=== PATIENT | male | born 1970 | race Caucasian/White ===

== ENCOUNTER 2017-02-25 10:35 | Inpatient (IN) | payer OTHER ==
[2017-02-25 10:42] VITALS: BMI 37.0
[2017-02-25] MEDS ORDERED: LIDOCAINE VISCOUS 2% ORAL/TOP 20 ML UNIT-DOSE CUP MM ONE (10:44)
[2017-02-25] MEDS ORDERED: morphine CARPU-JECT 2 MG/1 ML DISP.SYRIN IVPUSH ONE (10:45)
[2017-02-25] MEDS ORDERED: SODIUM CHLORIDE 1,000 ML IV STA ×2 (10:45→11:35)
[2017-02-25] MEDS ORDERED: DEXAMETHASONE SOD PHOSPHATE 10 MG/1 ML VIAL IVPUSH ONE (10:45)
[2017-02-25] MEDS ORDERED: morphine CARPU-JECT 4 MG/1 ML DISP.SYRIN ONE (10:51)
[2017-02-25] MEDS ORDERED: DEXAMETHASONE SOD PHOSPHATE 10 MG/1 ML VIAL ONE (10:51)
[2017-02-25 11:12] LABS: BASOPHIL 0.3 % (0-2.0); EOSINOPHIL 0.2 % (0-4.5); MCH 25.8 pg (25.7-33.7); MCHC 32.5 g/dl (32.0-35.9); MEAN CELL VOLUME 79.3 fl (80-96); MEAN PLT VOLUME 7.4 fl (7.5-11.1); NEUTROPHILS 78.5 % (42.8-82.8); PLATELET COUNT 239 K/MM3 (134-434); RDW 13.1 % (11.9-15.9); WHITE BLOOD COUNT 12.8 K/mm3 (4.0-10.0)
[2017-02-25 11:31] LABS: ALBUMIN 3.3 g/dl (3.4-5.0); ANION GAP 11 (8-16); CALCIUM 8.6 mg/dL (8.5-10.1); CO2 27 mmol/L (21-32); GLUCOSE,RANDOM 96 mg/dL (74-106)
[2017-02-25 11:35] LABS: BILIRUBIN,TOTAL 0.4 mg/dL (0.2-1.0); COCKROFT - GAULT 183.45; CREATININE 0.9 mg/dL (0.7-1.3); SGOT/AST 21 U/L (15-37); SGPT/ALT 26 U/L (12-78); TOT PROT 6.9 g/dl (6.4-8.2)
--- NOTE | 2017-02-25 11:35 | PDOC ---
History of Present Illness - General Chief Complaint: Sore Throat Stated Complaint: ABCESS Time Seen by Provider: 02/25/17 10:42 History Source: Patient Exam Limitations: No Limitations - History of Present Illness Initial Comments: 02/25/17 11:00 46-year-old male presents to the ED with complaints of sore throat, fever, difficulty swallowing, and generalized fatigue secondary to strep throat. Patient states on Friday started with mild complaints and by Friday he had a fever and went to an urgent care clinic where he was placed on amoxicillin and given a dose of Decadron. Patient states has been taking the medication as prescribed along with Motrin but states still has a fever and symptoms continue. Patient states history of hypothyroidism and dyslipidemia along with sleep apnea. Patient also states that as a child had recurrent strep throat and enlarged tonsils. Patient has no other complaints at this time. Timing/Duration: reports: other Severity: reports: moderate Possible Cause: Yes: occasional episodes Associated Symptoms: reports: fever/chills, sore throat Past History - Past Medical History Allergies/Adverse Reactions: Allergies Allergy/AdvReac Type Severity Reaction Status Date / Time No Known Drug Allergies Allergy Verified 02/25/17 10:46 Home Medications: Ambulatory Orders Atorvastatin Ca [Lipitor] 10 mg PO HS 09/22/15 Levothyroxine [Synthroid -] 75 mcg PO HS 09/22/15 Acetaminophen [Tylenol .Regular Strength -] 650 mg PO Q4H PRN #0 tablet Amoxicillin/Potassium Clav [Augmentin 875-125 Tablet] 1 each PO BID #14 tablet 02/27/17 Dexamethasone [Decadron -] 4 mg PO BID #6 tablet 02/27/17 Anemia: No Asthma: No Cancer: No Cardiac Disorders: No CVA: No COPD: No CHF: No Dementia: No Diabetes: No GI Disorders: No Disorders: No HTN: No Hypercholesterolemia: Yes Liver Disease: No Seizures: No Thyroid Disease: Yes (HYPO) - Surgical History Neurologic Surgery: No (Spinal epidural X 4) - Immunization History Immunization Up to Date: Yes - Psycho/Social/Smoking Cessation Hx Anxiety: No Suicidal Ideation: No Smoking Status: Yes Smoking History: Current some day smoker Have you smoked in the past 12 months: Yes Number of Cigarettes Smoked Daily: 2 Information on smoking cessation initiated: No 'Breaking Loose' booklet given: 11/29/14 Hx Alcohol Use: Yes (social) Drug/Substance Use Hx: No Substance Use Type: Alcohol Hx Substance Use Treatment: No Patient Lives Alone: No Lives with/in: spouse/SO Review of Systems - Review of Systems Able to Perform ROS?: Yes Constitutional: Yes: Fever, Loss of Appetite HEENTM: Yes: Throat Pain, Throat Swelling, Difficulty Swallowing Respiratory: No: Symptoms reported Cardiac (ROS): No: Symptoms Reported ABD/GI: No: Symptoms Reported : No: Symptoms Reported Musculoskeletal: No: Symptoms Reported Integumentary: No: Symptoms Reported Neurological: No: Headache, Dizziness *Physical Exam - Vital Signs Last Vital Signs Temp Pulse Resp BP Pulse Ox 98.6 F 84 18 123/80 100 02/25/17 10:37 02/25/17 10:37 02/25/17 10:37 02/25/17 10:37 02/25/17 10:37 - Physical Exam General Appearance: Yes: Nourished, Appropriately Dressed. No: Apparent Distress HEENT: positive: EOMI, IVIS, TMs Normal, Tonsillar Erythema (4+ kissing tonsils without uvular deviation. No exudate), Other (mild trismus). negative: Normal Voice (garbled), Pale Conjunctivae, Excessive drooling Neck: positive: Normal Thyroid, Supple, Lymphadenopathy (R) (upper cervical), Lymphadenopathy (L) (upper cervical) Respiratory/Chest: positive: Lungs Clear, Normal Breath Sounds. negative: Respiratory Distress, Accessory Muscle Use, Stridor Cardiovascular: positive: Regular Rhythm, Regular Rate. negative: Murmur Integumentary: positive: Normal Color, Warm, Moist Neurologic: positive: Motor Strength 5/5 (ambulatory) ED Treatment Course - LABORATORY CBC & Chemistry Diagram: 02/26/17 06:30 02/26/17 06:30 - ADDITIONAL ORDERS Additional order review: 02/25/17 10:59 RBC 5.30 MCV 79.3 L MCHC 32.5 RDW 13.1 MPV 7.4 L Neutrophils % 78.5 D Lymphocytes % 11.8 D Monocytes % 9.2 Eosinophils % 0.2 D Basophils % 0.3 - RADIOLOGY Radiology Studies Ordered: Category Date Time Status SOFT TISSUE NECK CT WITH CONTR [CT] Stat CT Scan 02/25/17 10:45 Ordered - Medications Given in the ED: ED Medications Discontinued Medications Generic Name Dose Route Start Last Admin Trade Name Lucía PRN Reason Stop Dose Admin Dexamethasone Sodium Phosphate 10 mg 02/25/17 10:45 02/25/17 10:57 Decadron Injection - IVPUSH 02/25/17 10:46 10 mg ONCE ONE Administration Morphine Sulfate 4 mg 02/25/17 10:45 02/25/17 10:57 Morphine Injection - IVPUSH 02/25/17 10:46 4 mg ONCE ONE Administration Medical Decision Making - Medical Decision Making 02/25/17 11:04 Fever and difficulty swallowing along with difficulty tolerating solids secondary to symptoms. Patient on day 2/3 of 7 of amoxicillin 875 twice a day for treatment of strep throat. 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 Patient ordered for steroids, fluids, labs, and CT. 02/25/17 12:03 Laboratory Tests 02/25/17 02/25/17 02/25/17 10:59 10:59 10:59 WBC 12.8 H D Hgb 13.7 Hct 42.1 Plt Count 239 Neutrophils % 78.5 D Sodium 139 Potassium 3.6 Chloride 101 Carbon Dioxide 27 Anion Gap 11 BUN 21 H D Creatinine 0.9 Random Glucose 96 Lactic Acid 0.995 AST 21 ALT 26 D Patient ordered for second liter of normal saline. CT results pending. 02/25/17 13:45 Soft tissue of the neck shows markedly enlarged tonsils kissing in the midline obstructing the area with a questionable small left peritonsillar abscess measuring 9 mm. Enlarged bilateral upper and mid neck jugular chain lymph nodes noted. Patient currently receiving Unasyn and will contact ENT and patient's PCP for admission. Patient states feeling slightly better and tolerated small amount of ice chips. We'll repeat vitals. 02/25/17 14:[address] Sheehan and agrees patient would benefit from admission along with IV antibiotics, steroids, and IV fluids. He believes at this time patient will not need drainage of the abscess . I've also spoken to Dr. Russ who states to admit to him and consult Dr. Jackson from infectious disease. *DC/Admit/Observation/Transfer Diagnosis at time of Disposition: Compromised airway, Tonsillar enlargement, Peritonsillar abscess - Discharge Dispostion Condition at time of disposition: Improved Admit: Yes - Prescriptions
[2017-02-25 11:36] LABS: ALK PHOS 63 U/L (45-117)
[2017-02-25] MEDS ORDERED: AMPICILLIN NA/SULBACTAM NA 3 GM in SODIUM CHLORIDE 100 ML IVPB ONE (12:31)
--- NOTE | 2017-02-25 14:01 | PDOC ---
*Physical Exam - Vital Signs Last Vital Signs Temp Pulse Resp BP Pulse Ox 98.6 F 84 18 123/80 100 02/25/17 10:37 02/25/17 10:37 02/25/17 10:37 02/25/17 10:37 02/25/17 10:37 ED Treatment Course - LABORATORY CBC & Chemistry Diagram: 02/26/17 06:30 02/26/17 06:30 - ADDITIONAL ORDERS Additional order review: Laboratory Results 02/25/17 02/25/17 10:59 10:59 Sodium 139 Potassium 3.6 Chloride 101 Carbon Dioxide 27 Anion Gap 11 BUN 21 H D Creatinine 0.9 Creat Clearance w eGFR > 60 Random Glucose 96 Lactic Acid 0.995 Calcium 8.6 Total Bilirubin 0.4 D AST 21 ALT 26 D Alkaline Phosphatase 63 Total Protein 6.9 Albumin 3.3 L 02/25/17 10:59 RBC 5.30 MCV 79.3 L MCHC 32.5 RDW 13.1 MPV 7.4 L Neutrophils % 78.5 D Lymphocytes % 11.8 D Monocytes % 9.2 Eosinophils % 0.2 D Basophils % 0.3 - Medications Given in the ED: ED Medications Discontinued Medications Generic Name Dose Route Start Last Admin Trade Name Freq PRN Reason Stop Dose Admin Dexamethasone Sodium Phosphate 10 mg 02/25/17 10:45 02/25/17 10:57 Decadron Injection - IVPUSH 02/25/17 10:46 10 mg ONCE ONE Administration Sodium Chloride 1,000 mls @ 1,000 mls/hr 02/25/17 10:45 02/25/17 10:57 Normal Saline - IV 02/25/17 11:44 1,000 mls/hr ASDIR STA Administration Sodium Chloride 1,000 mls @ 1,000 mls/hr 02/25/17 11:35 02/25/17 11:51 Normal Saline - IV 02/25/17 12:34 1,000 mls/hr ASDIR STA Administration Ampicillin Sodium/Sulbactam 100 mls @ 200 mls/hr 02/25/17 12:31 02/25/17 13:32 Sodium 3 gm/ Sodium Chloride IVPB 02/25/17 13:00 200 mls/hr ONCE ONE Administration Lidocaine HCl 10 ml 02/25/17 10:44 02/25/17 11:49 Xylocaine 2% Viscous Oral - MM 02/25/17 10:45 10 ml ONCE ONE Administration Morphine Sulfate 4 mg 02/25/17 10:45 02/25/17 10:57 Morphine Injection - IVPUSH 02/25/17 10:46 4 mg ONCE ONE Administration Medical Decision Making - Medical Decision Making 02/25/17 14:01 Pt seen by Midlevel Provider under my direct supervision Ancillary studies reviewed I agree with plan as outlined by Midlevel Provider *DC/Admit/Observation/Transfer Diagnosis at time of Disposition: Compromised airway, Tonsillar enlargement, Peritonsillar abscess
[2017-02-25] MEDS ORDERED: HYDROmorphone HCL CARPU-JECT 2 MG/1 ML DISP.SYRIN IVPUSH ONE (14:14)
[2017-02-25] MEDS ORDERED: HYDROmorphone HCL CARPU-JECT 1 MG/1 ML DISP.SYRIN ONE (14:15)
[2017-02-25] MEDS ORDERED: ACETAMINOPHEN 325 MG TABLET (FP) PO PRN (15:37)
--- NOTE | 2017-02-25 16:09 | PN ---
Progress Note (short form) - Note Progress Note: ID Consult dictated Severe pharyngitis with "kissing" tonsils Possible peritonsillar abscess Obtain BC, ASO, Monospot, throat c/s Unasyn 3gm q6h Decadron ENT evaluation
[2017-02-25] MEDS: D5-1/2NS+20 MEQ KCL - 1,000 ML IV SCH (16:10)
[2017-02-25] MEDS ORDERED: AMPICILLIN NA/SULBACTAM NA 3 GM in SODIUM CHLORIDE 100 ML IVPB SCH (18:00)
--- NOTE | 2017-02-25 18:13 | CON.ENT ---
Consult Consult Specialty:: ENT Referred by:: Dr. Russ Reason for Consultation:: peritonsillar abscess - History of Present Illness Chief Complaint: throat pain History of Present Illness: 46 yo M, hx childhood tonsil infections, no tonsillectomy 3 day hx worsening sore throat, high fever 104, to urgent care, rx steroids, antibiotics no better, worsening pain, continued fever, could nto handle secretions, to ER dx tonsillitis ?peritonsillar abscess, CT scan shows small 9mm lucency on IV antibiotics, Unasyn, decadron, notes improvement, able to eat/swallow soup also notes obstructive sleep apnea syndrome with witnessed apneas and SaO2 into 60's - History Source History Provided By: Patient, Family Member, Medical Record - Alcohol/Substance Use Hx Alcohol Use: Yes (social) - Smoking History Smoking history: Current some day smoker Have you smoked in the past 12 months: Yes Aproximately how many cigarettes per day: 2 Home Medications - Allergies Allergies/Adverse Reactions: Allergies Allergy/AdvReac Type Severity Reaction Status Date / Time No Known Drug Allergies Allergy Verified 02/25/17 10:46 - Home Medications Home Medications: Ambulatory Orders Atorvastatin Ca [Lipitor -] 10 mg PO HS 09/22/15 Levothyroxine [Synthroid -] 75 mcg PO HS 09/22/15 Physical Exam-ENT Vital Signs: Vital Signs Temperature 98.2 F 02/25/17 16:15 Pulse Rate 93 H 02/25/17 16:15 Respiratory Rate 20 02/25/17 16:15 Blood Pressure 107/59 02/25/17 16:15 O2 Sat by Pulse Oximetry (%) 100 02/25/17 14:37 Constitutional: Yes: Well Nourished, Calm, Obese Head: Yes: WNL Face: Yes: WNL Eyes: Yes: WNL Nose: Yes: WNL Nasal Passage: Yes: WNL Oral/Pharynx: Yes: Enlarged Tonsils, Other (no trismus, tonsils 4+ kissing, some exudate,k uvula is midline, NO palatal swelling, NO peritonsillar abscess) Outer Ear: Yes: WNL Ear Canal: Yes: WNL Tympanic Membrane: Yes: WNL Neck: Yes: Other (tender nodes) Respiratory: Yes: WNL Neurological: Yes: WNL Imaging - Results Cat Scan: Report Reviewed (9 mm lucency ?early abscess) Problem List - Problems (1) Peritonsillar abscess Assessment/Plan: severe pain with fever and tonsillar hypertrophy early abscess on CT scan, but no clinical manifestations improving on IV meds rec continue meds NO indication for any drainage procedure if improved, ok to discharge when meets discharge criteria separately pt has suspected SUMAN needs outpatient evaluation including sleep test further treatment depends on results, but would likely start with CPAP may be candidate for surgery (tonsillectomy ?UPPP) depending on exam and course after acute infection resolved. Thank you for consultation, William Sheehan MD FACS Code(s): J36 - PERITONSILLAR ABSCESS
--- NOTE | 2017-02-25 19:13 | CONS ---
DATE OF CONSULTATION: DATE OF DICTATION: 02/25/2017 INFECTIOUS DISEASE CONSULTATION HISTORY OF PRESENT ILLNESS: The patient is a 46-year-old male being evaluated for severe pharyngitis and tonsillar hypertrophy. The patient reports feeling well until Wednesday February 22, 2017. He developed profound fatigue. He subsequently developed sore throat with difficulty swallowing. He had presented to an urgent care center where he was diagnosed with Streptococcus throat. A rapid Streptococcus test was reportedly positive. He was treated with Augmentin 875 mg p.o. b.i.d. Patient states that he took 2 days' worth of the medication; however, it did not improve. He developed worsening difficulty swallowing. He presented to the emergency room at [facility] where he was found to have severe pharyngitis with kissing tonsils. A CAT scan confirmed the presence of large tonsils with partially occluded airway and possible early peritonsillar abscess. He was empirically treated with Unasyn and Decadron. PAST MEDICAL HISTORY: Positive for obesity, obstructive sleep apnea, hypothyroidism, hyperlipidemia. ALLERGIES: No known allergies. MEDICATION: Include Lipitor, Synthroid. SOCIAL HISTORY: Lives at home with his and children. He states that none of his children have been ill with respiratory tract conditions. He has had no ill contacts at work. He is a smoker, occasional ETOH. SYSTEMS REVIEW: Neurologic: No loss of consciousness, seizure activity, or focal weakness. Cardiac: Negative chest pain or palpitations. Respiratory: Negative cough or sputum production. Gastrointestinal: Negative vomiting or diarrhea. Genitourinary: Negative for urinary tract infection. LABORATORY DATA: White count 12.8, with 78 neutrophils, 11 lymphocytes, 9 monocytes, hematocrit 42.1, platelet count 235, BUN 21, creatinine 0.9. PHYSICAL EXAMINATION: General: He is awake and alert. He is not acutely toxic appearing. He has a "hot potato voice". Vital signs: Temperature 98.0, blood pressure 128/60, pulse 85 regular, respirations 18 per minute . There is no respiratory distress, stridor, or wheeze. HEENT: Sclerae anicteric. Oropharynx, there is injected pharynx with large tonsils with near occlusion of the airway. No exudates noted. Neck: Supple. Positive submandibular retinopathy. No other tender adenopathy appreciated. Cardiovascular: Heart sounds S1, S2. Respiratory: Lungs clear. No stridor or wheezing. Abdomen: Obese, soft, nontender. No palpable liver or spleen. Extremities: Negative for edema. IMPRESSION: 1. Severe pharyngitis with "kissing" tonsils. 2. Possible impending airway obstruction. 3. Possible peritonsillar abscess. Obtain blood cultures, ASO titer, monospot, throat culture, empiric antibiotic coverage with Unasyn 3 g IV piggyback every 6 hours, Decadron, ENT evaluation. Thank you for the kind referral. AUGUSTINA HAUSER M.D. [id number]
[2017-02-25] MEDS ORDERED: PT OWN MED DRAWER 7, Y5N ONE (21:13)
[2017-02-25] MEDS: AMPICILLIN NA/SULBACTAM NA 3 GM in SODIUM CHLORIDE 100 ML IVPB SCH (21:58)
[2017-02-25] MEDS: HEPARIN NA (PORCINE) 5,000 UNITS/ML 1ML VIAL SQ SCH (21:59)
[2017-02-25] MEDS: ATORVASTATIN CA 10 MG TABLET (FP) PO SCH (21:59)
[2017-02-25] MEDS: DEXAMETHASONE SOD PHOSPHATE 10 MG/1 ML VIAL IVPB SCH (21:59)
[2017-02-26] MEDS: DEXAMETHASONE SOD PHOSPHATE 10 MG/1 ML VIAL IVPB SCH ×4 (02:52→21:37)
[2017-02-26] MEDS: AMPICILLIN NA/SULBACTAM NA 3 GM in SODIUM CHLORIDE 100 ML IVPB SCH ×4 (02:52→21:37)
[2017-02-26] MEDS: LEVOTHYROXINE NA 75 MCG TABLET (FP) PO SCH (06:27)
--- NOTE | 2017-02-26 07:46 | HP ---
Admitting History and Physical - Admission History of Present Illness: 46-year-old male presents to the ED with complaints of sore throat, fever, difficulty swallowing, and generalized fatigue secondary to strep throat. Patient states on Friday started with mild complaints and by Friday he had a fever and went to an urgent care clinic where he was placed on amoxicillin and given a dose of Decadron. Patient states has been taking the medication as prescribed along with Motrin but states still has a fever and symptoms continue. Patient states history of hypothyroidism and dyslipidemia along with sleep apnea. Patient also states that as a child had recurrent strep throat and enlarged tonsils. Patient c/o difficulty swallowing but improved continues with hoarseness - Past Medical History Cardiovascular: Yes: Hyperlipdemia Pulmonary: Yes: Sleep Apnea Endocrine: Yes: Hypothyroidism - Smoking History Smoking history: Current some day smoker Have you smoked in the past 12 months: Yes Aproximately how many cigarettes per day: 2 - Alcohol/Substance Use Hx Alcohol Use: Yes (social) Home Medications - Allergies Allergies/Adverse Reactions: Allergies Allergy/AdvReac Type Severity Reaction Status Date / Time No Known Drug Allergies Allergy Verified 02/25/17 10:46 - Home Medications Home Medications: Ambulatory Orders Atorvastatin Ca [Lipitor -] 10 mg PO HS 09/22/15 Levothyroxine [Synthroid -] 75 mcg PO HS 09/22/15 Review of Systems - Review of Systems Constitutional: reports: Fever Eyes: reports: Other (sore throat) Neck: reports: No Symptoms Cardiovascular: denies: Chest Pain Respiratory: reports: SOB on Exertion. denies: SOB Gastrointestinal: denies: Abdominal Pain Musculoskeletal: reports: Back Pain Physical Examination Vital Signs: Vital Signs Temperature 98.9 F 02/26/17 06:47 Pulse Rate 82 02/26/17 06:47 Respiratory Rate 20 02/26/17 06:47 Blood Pressure 110/57 02/26/17 06:47 O2 Sat by Pulse Oximetry (%) 100 02/25/17 21:00 HENT: Yes: Hoarseness, Pharyngeal Erythema, Other (tonsilar swelling) Cardiovascular: Yes: Regular Rate and Rhythm Respiratory: Yes: Regular, CTA Bilaterally Gastrointestinal: Yes: Normal Bowel Sounds, Soft, Tenderness Edema: No Imaging - Results Cat Scan: Report Reviewed Problem List - Problems (1) Peritonsillar abscess Assessment/Plan: IV ABX ID AND ENT CONSULTS NOTED AND APPRECIATED Code(s): J36 - PERITONSILLAR ABSCESS (2) Tonsillar enlargement Assessment/Plan: IV ABX IV DECADRON Code(s): J35.1 - HYPERTROPHY OF TONSILS (3) Hypothyroid Assessment/Plan: SYNTHROID TSH Code(s): E03.9 - HYPOTHYROIDISM, UNSPECIFIED (4) SUMAN (obstructive sleep apnea) Assessment/Plan: W/U OUTPATIENT Code(s): G47.33 - OBSTRUCTIVE SLEEP APNEA (ADULT) (PEDIATRIC)
[2017-02-26 07:49] LABS: BASOPHIL 0.2 % (0-2.0); MCH 26.8 pg (25.7-33.7); MCHC 33.7 g/dl (32.0-35.9); MEAN CELL VOLUME 79.4 fl (80-96); MEAN PLT VOLUME 7.4 fl (7.5-11.1); NEUTROPHILS 88.6 % (42.8-82.8); PLATELET COUNT 240 K/MM3 (134-434); WHITE BLOOD COUNT 10.7 K/mm3 (4.0-10.0)
[2017-02-26 08:24] LABS: ALBUMIN 2.9 g/dl (3.4-5.0); ANION GAP 9 (8-16); BILIRUBIN,TOTAL 0.4 mg/dL (0.2-1.0); CHOLESTEROL 197 mg/dL (50-200); CO2 26 mmol/L (21-32); COCKROFT - GAULT 206.38; CREATININE 0.8 mg/dL (0.7-1.3); GLUCOSE,RANDOM 150 mg/dL (74-106); LDL CHOLESTEROL (ONLY SJRH) 134 mg/dL (5-100); SGOT/AST 21 U/L (15-37); SGPT/ALT 31 U/L (12-78); TOT PROT 6.5 g/dl (6.4-8.2)
[2017-02-26 08:32] LABS: ALK PHOS 60 U/L (45-117); THYROID STIMULATING HORMONE 1.02 uIU/ml (0.358-3.74)
[2017-02-26] MEDS ORDERED: PT OWN MED DRAWER 7, Y5N ONE ×3 (08:58→21:22)
[2017-02-26] MEDS: HEPARIN NA (PORCINE) 5,000 UNITS/ML 1ML VIAL SQ SCH ×2 (10:29→21:37)
--- NOTE | 2017-02-26 12:11 | PN ---
Progress Note, Physician History of Present Illness: Improved Less dysphagia/ odynophagia No respiratory compromise No fever/ chills - Current Medication List Current Medications: Active Medications Acetaminophen (Tylenol -) 650 mg PO Q4H PRN PRN Reason: FEVER OR PAIN Atorvastatin Calcium (Lipitor -) 10 mg PO HS [facility] Last Admin: 02/25/17 21:59 Dose: 10 mg Dexamethasone Sodium Phosphate (Decadron Injection -) 10 mg IVPB Q6H-IV [facility] Last Admin: 02/26/17 10:29 Dose: 10 mg Heparin Sodium (Porcine) (Heparin -) 5,000 unit SQ BID [facility] Last Admin: 02/26/17 10:29 Dose: 5,000 unit Potassium Chloride/Dextrose/Sod Cl (D5-1/2ns+20 Meq Kcl -) 1,000 mls @ 125 mls/ hr IV ASDIR [facility] Last Admin: 02/25/17 16:10 Dose: 125 mls/hr Ampicillin Sodium/Sulbactam (Sodium 3 gm/ Sodium Chloride) 100 mls @ 200 mls/ hr IVPB Q6H-IV [facility] Last Admin: 02/26/17 09:24 Dose: 200 mls/hr Levothyroxine Sodium (Synthroid -) 75 mcg PO ACBK [facility] Last Admin: 02/26/17 06:27 Dose: 75 mcg - Objective Vital Signs: Vital Signs Temperature 98.9 F 02/26/17 06:47 Pulse Rate 82 02/26/17 06:47 Respiratory Rate 20 02/26/17 06:47 Blood Pressure 110/57 02/26/17 06:47 O2 Sat by Pulse Oximetry (%) 100 02/25/17 21:00 Constitutional: Yes: No Distress Eyes: Yes: Conjunctiva Clear HENT: Yes: Other (decreased tonsillar hypertrophy) Neck: Yes: Supple Cardiovascular: Yes: Regular Rate and Rhythm, S1, S2 Respiratory: Yes: CTA Bilaterally. No: Stridor, Wheezes Gastrointestinal: Yes: Normal Bowel Sounds, Soft, Abdomen, Obese. No: Tenderness Labs: CBC, BMP 02/26/17 06:30 02/26/17 06:30 Assessment/Plan Severe tonsillitis/ peritonsillar abscess ENT evaluation noted Continue unasyn/ decadron
--- NOTE | 2017-02-26 20:58 | PN ---
Progress Note (short form) - Note Progress Note: ENT feeling much better, less pain able to eat/drink, had turkey soup with crackers breathing comfortably afebrile Exam: NAD comfortable no trismus oropharynx: tonsils enlarged, but now ~1 cm space between slight erythema, no exudate NO bulging of soft palate, no clinical signs of peritonsillar abscess Data: WBC 10.7 Impression: acute tonsillopharyngitis with possible early peritonsillar abscess markedly improved with IV antibiotics, steroids and fluids po intake satisfactory also clinical suspicion for obstructive sleep apnea syndrome Recommend: continue diet as tolerated consider change to po antibiotics in AM if meets discharge criteria then OK for discharge 02-27-17 from ENT perspective oral antibiotics as outpatient as per Infectious Disease to office after discharge for follow-up should have outpatient evaluation for obstructive sleep apnea syndrome may be candidate for tonsillectomy William Sheehan MD FACS Problem List - Problems (1) Peritonsillar abscess Code(s): J36 - PERITONSILLAR ABSCESS
[2017-02-26] MEDS: D5-1/2NS+20 MEQ KCL - 1,000 ML IV SCH (21:37)
[2017-02-26] MEDS: ATORVASTATIN CA 10 MG TABLET (FP) PO SCH (21:38)
[2017-02-27] MEDS: AMPICILLIN NA/SULBACTAM NA 3 GM in SODIUM CHLORIDE 100 ML IVPB SCH ×2 (02:36→10:07)
[2017-02-27] MEDS: DEXAMETHASONE SOD PHOSPHATE 10 MG/1 ML VIAL IVPB SCH (02:37)
[2017-02-27] MEDS: D5-1/2NS+20 MEQ KCL - 1,000 ML IV SCH (02:41)
[2017-02-27] MEDS: LEVOTHYROXINE NA 75 MCG TABLET (FP) PO SCH (06:26)
--- NOTE | 2017-02-27 07:10 | DS ---
Physical Examination Vital Signs: Vital Signs Temperature 97.7 F 02/27/17 06:22 Pulse Rate 68 02/27/17 06:22 Respiratory Rate 20 02/27/17 06:22 Blood Pressure 130/79 02/27/17 06:22 O2 Sat by Pulse Oximetry (%) 100 02/26/17 21:00 Findings/Remarks: FEELS BETTER TOLERATING DIET HENT: Yes: Pharyngeal Erythema, Other (LESS SWELLING) Neck: No: Tenderness Cardiovascular: Yes: Regular Rate and Rhythm Respiratory: Yes: Regular, CTA Bilaterally Gastrointestinal: Yes: Normal Bowel Sounds, Soft Labs: CBC, BMP 02/26/17 06:30 02/26/17 06:30 Discharge Summary Reason For Visit: PERITONSILLAR ABSCESS Current Active Problems Compromised airway (Acute) Hypothyroid (Acute) SUMAN (obstructive sleep apnea) (Acute) Peritonsillar abscess (Acute) Tonsillar enlargement (Acute) Hospital Course: History of Present Illness: 46-year-old male presents to the ED with complaints of sore throat, fever, difficulty swallowing, and generalized fatigue secondary to strep throat. Patient states on Friday started with mild complaints and by Friday he had a fever and went to an urgent care clinic where he was placed on amoxicillin and given a dose of Decadron. Patient states has been taking the medication as prescribed along with Motrin but states still has a fever and symptoms continue. Patient states history of hypothyroidism and dyslipidemia along with sleep apnea. Patient also states that as a child had recurrent strep throat and enlarged tonsils. Patient c/o difficulty swallowing but improved continues with hoarseness - Past Medical History Cardiovascular: Yes: Hyperlipdemia Pulmonary: Yes: Sleep Apnea Endocrine: Yes: Hypothyroidism - Smoking History Smoking history: Current some day smoker Have you smoked in the past 12 months: Yes Aproximately how many cigarettes per day: 2 - Problems (1) Peritonsillar abscess Assessment/Plan: IV ABX--TO PO ID AND ENT CONSULTS NOTED AND APPRECIATED Code(s): J36 - PERITONSILLAR ABSCESS (2) Tonsillar enlargement Assessment/Plan: IV ABX--PO IV DECADRON--PO Code(s): J35.1 - HYPERTROPHY OF TONSILS (3) Hypothyroid Assessment/Plan: SYNTHROID TSH Code(s): E03.9 - HYPOTHYROIDISM, UNSPECIFIED (4) SUMAN (obstructive sleep apnea) Assessment/Plan: W/U OUTPATIENT Code(s): G47.33 - OBSTRUCTIVE SLEEP APNEA (ADULT) (PEDIATRIC) Condition: Improved - Instructions Referrals: Mikey Moura MD [Staff Physician] - Eve Russ MD [Primary Care Provider] - 1 Week Disposition: HOME - Home Medications Comprehensive Discharge Medication List: Ambulatory Orders Atorvastatin Ca [Lipitor] 10 mg PO HS 09/22/15 Levothyroxine [Synthroid -] 75 mcg PO HS 09/22/15 Acetaminophen [Tylenol .Regular Strength -] 650 mg PO Q4H PRN #0 tablet Amoxicillin/Potassium Clav [Augmentin 875-125 Tablet] 1 each PO BID #14 tablet 02/27/17 Dexamethasone [Decadron -] 4 mg PO BID #6 tablet 02/27/17
[2017-02-27 09:39] VITALS: BP 117/67; PULSE 59; TEMP 97.5
[2017-02-27] MEDS ORDERED: DEXAMETHASONE 4 MG TABLET (FP) PO SCH (10:00)
[2017-02-27] MEDS ORDERED: PT OWN MED DRAWER 7, Y5N ONE (10:01)
[2017-02-27] MEDS: HEPARIN NA (PORCINE) 5,000 UNITS/ML 1ML VIAL SQ SCH (10:07)
--- NOTE | 2017-02-27 11:35 | PN ---
Progress Note, Physician History of Present Illness: Doing well Swallowing better No breathing difficulty No fever/ chills - Current Medication List Current Medications: Active Medications Acetaminophen (Tylenol -) 650 mg PO Q4H PRN PRN Reason: FEVER OR PAIN Atorvastatin Calcium (Lipitor -) 10 mg PO HS [facility] Last Admin: 02/26/17 21:38 Dose: 10 mg Dexamethasone (Decadron -) 4 mg PO BID [facility] Last Admin: 02/27/17 10:07 Dose: 4 mg Heparin Sodium (Porcine) (Heparin -) 5,000 unit SQ BID [facility] Last Admin: 02/27/17 10:07 Dose: Not Given Ampicillin Sodium/Sulbactam (Sodium 3 gm/ Sodium Chloride) 100 mls @ 200 mls/ hr IVPB Q6H-IV [facility] Last Admin: 02/27/17 10:07 Dose: 200 mls/hr Levothyroxine Sodium (Synthroid -) 75 mcg PO ACBK [facility] Last Admin: 02/27/17 06:26 Dose: 75 mcg - Objective Vital Signs: Vital Signs Temperature 97.5 F L 02/27/17 09:37 Pulse Rate 59 L 02/27/17 09:37 Respiratory Rate 1 L 02/27/17 09:37 Blood Pressure 117/67 02/27/17 09:37 O2 Sat by Pulse Oximetry (%) 100 02/26/17 21:00 Constitutional: Yes: No Distress Eyes: Yes: Conjunctiva Clear HENT: Yes: Other (decreased tonsillar hypertrophy airway patent) Cardiovascular: Yes: Regular Rate and Rhythm, S1, S2 Respiratory: Yes: CTA Bilaterally. No: Stridor, Wheezes Gastrointestinal: Yes: Normal Bowel Sounds, Soft. No: Tenderness Edema: No Labs: CBC, BMP 02/26/17 06:30 02/26/17 06:30 Assessment/Plan Severe tonsillitis/ peritonsillar abscess improved Discussed with ENT May substitute Augmentin 875mg po bid x7d Steroid taper Outpatient ENT follow up
--- NOTE | 2017-02-27 17:35 | EKG ---
Test Reason : Blood Pressure : / mmHG Vent. Rate : 069 BPM Atrial Rate : 069 BPM P-R Int : 124 ms QRS Dur : 102 ms QT Int : 412 ms P-R-T Axes : 043 008 001 degrees QTc Int : 441 ms NORMAL SINUS RHYTHM NORMAL ECG WHEN COMPARED WITH ECG OF 22-SEP-2015 17:21, NO SIGNIFICANT CHANGE WAS FOUND Confirmed by CAROLE HALL MD ([id number]) on 02/27/2017 5:35:17 PM Referred By: Aga GARCIA Confirmed By:CAROLE HALL MD
== END 2017-02-27 11:55 | disposition home or self-care (01) | DRG 69 ==
LOC: JER 10:35 → JERBED 14:02 → J8W 14:40
PROVIDERS: ADMIT Family Medicine; ATTEND Family Medicine
DX: J36 Peritonsillar abscess (principal); J35.1 Hypertrophy of tonsils; E03.9 Hypothyroidism, unspecified; G47.33 Obstructive sleep apnea (adult) (pediatric); Z72.0 Tobacco use
CPT/HCPCS: 36415; 70491-TC; 80053; 80061; 83605; 83721; 84443; 85025; 86063; 86308; 87040; 87070; 87186; 93005; 93010; 99283-25; J1644

== ENCOUNTER 2020-07-17 12:50 | Emergency (ER) | payer OTHER ==
--- NOTE | 2020-07-17 12:59 | PDOC ---
Rapid Medical Evaluation Time Seen by Provider: 07/17/20 12:54 Medical Evaluation: Allergies Allergy/AdvReac Type Severity Reaction Status Date / Time No Known Drug Allergies Allergy Verified 02/25/17 10:46 07/17/20 12:56 Pt presents for evaluation of lower back pain worsening today after starting one week ago. States that his back has been locking up on him. Known L4/L5 issues. States that the pain is shooting down his L leg. Taking Motrin, Tylenol, and muscle relaxers at home. Exam: TTP of L paraspinous muscles, (+) straight leg raise testing Orders: lumbar spine film Pt to proceed to the ER for further evaluation Discharge Disposition - Diagnosis Back pain, Radiculopathy of lumbar region - Referrals - Patient Instructions - Post Discharge Activity
[2020-07-17 13:00] VITALS: BP 115/83; PULSE 83; BMI 35.9
[2020-07-17 13:12] VITALS: TEMP 98.1
[2020-07-17] MEDS ORDERED: ACETAMINOPHEN 1000 MG/100 ML VIAL (NON FORMULARY) IVPB ONE (13:43)
[2020-07-17] MEDS ORDERED: KETOROLAC TROMETHAMINE 30 MG/1 ML VIAL IVPUSH ONE (13:43)
[2020-07-17] MEDS ORDERED: diazePAM CARPU-JECT 10 MG/2 ML DISP.SYRIN IVPUSH ONE (13:43)
[2020-07-17] MEDS ORDERED: diazePAM 5 MG TABLET PO ONE (13:47)
[2020-07-17] MEDS ORDERED: KETOROLAC TROMETHAMINE 30 MG/1 ML VIAL ONE (13:53)
[2020-07-17] MEDS ORDERED: ACETAMINOPHEN INJECTION 100 ML IVPB ONE (13:53)
[2020-07-17] MEDS ORDERED: diazePAM 5 MG TABLET ONE (13:55)
--- NOTE | 2020-07-17 16:20 | PDOC ---
History of Present Illness - General Chief Complaint: Back Pain Stated Complaint: LBP Time Seen by Provider: 07/17/20 12:54 - History of Present Illness Initial Comments: 07/17/20 16:17 49-year-old male Presents for evaluation of lower back pain with posterior lateral left leg radiculopathy x3 days no systemic symptoms loss of bowel bladder function or saddle paresthesias. Past History - Medical History Allergies/Adverse Reactions: Allergies Allergy/AdvReac Type Severity Reaction Status Date / Time No Known Drug Allergies Allergy Verified 07/17/20 12:57 Home Medications: Ambulatory Orders Atorvastatin Ca [Lipitor] 10 mg PO HS 09/22/15 Levothyroxine [Synthroid -] 75 mcg PO HS 09/22/15 Acetaminophen [Tylenol .Regular Strength -] 650 mg PO Q4H PRN #0 tablet 02/27/17 Amoxicillin/Potassium Clav [Augmentin 875-125 Tablet] 1 each PO BID #14 tablet 02/27/17 Dexamethasone [Decadron -] 4 mg PO BID #6 tablet 02/27/17 Methylprednisolone [Medrol Dose Victoriano] 4 mg PO ASDIR #21 tablet 07/17/20 Oxycodone HCl/Acetaminophen [Percocet 5-325 mg Tablet] 1 - 2 tab PO Q6H PRN #20 tab MDD 6 07/17/20 Anemia: No Asthma: No Cancer: No Cardiac Disorders: No CVA: No COPD: No CHF: No Dementia: No Diabetes: No GI Disorders: No Disorders: No HTN: No Hypercholesterolemia: Yes Liver Disease: No Seizures: No Thyroid Disease: Yes (HYPO) - Surgical History Neurologic Surgery: No (Spinal epidural X 4) - Immunization History Immunization Up to Date: Yes - Psycho-Social/Smoking History Smoking Status: Yes Smoking History: Current some day smoker Have you smoked in the past 12 months: Yes Number of Cigarettes Smoked Daily: 10 Information on smoking cessation initiated: Yes 'Breaking Loose' booklet given: 11/29/14 - Substance Abuse Hx (Audit-C & DAST Scrn) How often the patient has a drink containing alcohol: Monthly or less Number of drinks the patient has on a typical day: 1 or 2 Score: In Men: 4 or > Positive; In Women: 3 or > Positive: 1 Screen Result (Pos requires Nsg. Audit-10AR): Negative In the last yr the pt used illegal drug/Rx for NonMed reason: No Score: Yes response is considered Positive: 0 Screen Result (Positive result requires Nsg. DAST-10): Negative Review of Systems - Review of Systems Constitutional: No: Fever : No: Incontinence Musculoskeletal: Yes: Back Pain *Physical Exam - Vital Signs Last Vital Signs Temp Pulse Resp BP Pulse Ox 98.1 F 83 18 115/83 100 07/17/20 12:57 07/17/20 12:57 07/17/20 12:57 07/17/20 12:57 07/17/20 12:57 - Physical Exam 07/17/20 16:18 Lumbar spine skin color temperature normal range of motion is slightly decreased. No midline tenderness. Moderate bilateral paralumbar musculature spasm and tenderness 5 out of 5 strength bilateral lower extremities without gross sensorimotor deficits thighs and calves are soft and nontender neurovascular intact ED Treatment Course - RADIOLOGY Radiology Studies Ordered: Category Date Time Status LUMBAR SPINE MRI W/O CONTRAST [MRI] Stat MRI 07/17/20 13:34 Ordered - Medications Given in the ED: ED Medications Discontinued Medications Generic Name Dose Route Start Last Admin Trade Name Lucía PRN Reason Stop Dose Admin Acetaminophen 1,000 mg 07/17/20 13:43 07/17/20 14:04 Ofirmev Injection - IVPB 07/17/20 13:44 1,000 mg ONCE ONE Administration Diazepam 5 mg 07/17/20 13:43 07/17/20 14:07 Valium Injection - IVPUSH 07/17/20 13:44 Not Given ONCE ONE Diazepam 5 mg 07/17/20 13:47 07/17/20 14:03 Valium - PO 07/17/20 13:48 5 mg ONCE ONE Administration Ketorolac Tromethamine 30 mg 07/17/20 13:43 07/17/20 14:03 Toradol Injection - IVPUSH 07/17/20 13:44 30 mg ONCE ONE Administration Oxycodone/Acetaminophen 2 combo 07/17/20 15:14 07/17/20 15:28 Percocet 5/325 - PO 07/17/20 15:15 2 combo ONCE ONE Administration Medical Decision Making - Medical Decision Making 07/17/20 16:18 Relief with IV Ofirmev and Toradol p.o. Valium and Percocet MRI are declined. Patient was initially sent to the emergency room for an MRI from his primary care physician however there is no emergent reason to do an MRI. I did order it anyway and it was denied by the radiologist. I see no emergent reason to do an MRI. He can follow-up as an outpatient with either his primary care physician or pain management. He is also under the care of a spinal surgeon. Medrol Dosepak and Percocet discontinue ibuprofen orally at home while on the Medrol Dosepak. Continue p.o. Tylenol and Robaxin as directed and return to the emergency room for worsening symptoms and follow-up with a spine surgeon in 1 to 2 days. I have reviewed the pathophysiology with the patient. They are in agreement with the treatment plan all questions were answered to their satisfaction. Understanding for follow-up without fail was also conveyed to the patient. Again they are in agreement. 07/17/20 16:20 X-rays were reviewed. Discharge - Discharge Information Problems reviewed: Yes Clinical Impression/Diagnosis: Back pain, Radiculopathy of lumbar region Condition: Stable Disposition: HOME - Admission No - Additional Discharge Information Prescriptions: Methylprednisolone [Medrol Dose Victoriano] 4 mg PO ASDIR #21 tablet Oxycodone HCl/Acetaminophen [Percocet 5-325 mg Tablet] 1 - 2 tab PO Q6H PRN #20 tab MDD 6 PRN Reason: Pain - Follow up/Referral Referrals: Eve Russ MD [Primary Care Provider] - Randolph Melo MD, FAANS [Staff Physician] - - Patient Discharge Instructions Additional Instructions: Please take the Medrol Dosepak and started as directed. Do not take any anti- inflammatories such as ibuprofen Aleve Naprosyn or Motrin while on the Medrol Dosepak. Continue the muscle relaxer as directed please take the Percocet as directed. Do not take any additional medication on top of the Percocet no Tylenol. Return to the emergency room for worsening symptoms and without fail follow-up with your neurosurgeon in 1 to 2 days for further evaluation and treatment options. - Post Discharge Activity
== END 2020-07-17 16:28 | disposition home or self-care (01) ==
LOC: JERFT 12:50 → JER 12:50 → JERFT 16:28
PROC: 3E0333Z Introduction of Anti-inflammatory into Peripheral Vein, Percutaneous Approach (ICD-10-PCS; principal; 2020-07-17)
PROC: 3E033GC Introduction of Other Therapeutic Substance into Peripheral Vein, Percutaneous Approach (ICD-10-PCS; 2020-07-17)
DX: M54.5 Low back pain (principal)
CPT/HCPCS: 72100-TC-FY; 99284-25; J0131

== ENCOUNTER 2020-10-16 04:49 | Day surgery (SDC) | payer OTHER ==
[2020-10-11 16:59] VITALS: BMI 37.6
[2020-10-16] MEDS ORDERED: methylPREDNISolone ACET (DEPO) 80 MG/1 ML VIAL ONE ×2 (07:23→07:59)
[2020-10-16] MEDS ORDERED: BUPIVACAINE HCL/PF 0.25% (2.5MG/ML) 10 ML VIAL ONE (07:23)
[2020-10-16] MEDS ORDERED: PROPOFOL 20 ML ONE ×2 (08:23→08:27)
[2020-10-16 09:22] VITALS: BP 130/85; PULSE 83; TEMP 98.5
== END 2020-10-16 09:31 | disposition home or self-care (01) ==
LOC: JASU-SURG 04:49
PROVIDERS: ATTEND Neurological Surgery
PROC: 3E0R3BZ Introduction of Anesthetic Agent into Spinal Canal, Percutaneous Approach (ICD-10-PCS; 2020-10-16)
PROC: B01BYZZ Fluoroscopy of Spinal Cord using Other Contrast (ICD-10-PCS; 2020-10-16)
PROC: 3E0R33Z Introduction of Anti-inflammatory into Spinal Canal, Percutaneous Approach (ICD-10-PCS; principal; 2020-10-16 08:00)
DX: M51.26 Other intervertebral disc displacement, lumbar region (principal); M54.16 Radiculopathy, lumbar region
CPT/HCPCS: 76000-TC-FY

== ENCOUNTER 2021-09-27 19:47 | Emergency (ER) | payer OTHER, BC | END 2021-09-27 22:04 | disposition home or self-care (01) | LOC: JVIRT 19:47 | DX: Z11.52 Encounter for screening for COVID-19 (principal) | CPT/HCPCS: C9803; Q3014-GT; U0003; U0005 ==

== ENCOUNTER 2021-09-29 18:17 | Emergency (ER) | payer OTHER, BC ==
[2021-09-29 18:46] VITALS: BP 128/84; PULSE 82; TEMP 98.8; BMI 22.3
== END 2021-09-29 19:40 | disposition home or self-care (01) ==
LOC: JER 18:17
DX: U07.1 COVID-19 (principal)
CPT/HCPCS: 99283-25; C9803; U0003; U0005

== ENCOUNTER 2021-10-04 22:10 | Emergency (ER) | payer OTHER, BC | END 2021-10-04 23:26 | disposition home or self-care (01) | LOC: JVIRT 22:10 | DX: U07.1 COVID-19 (principal) | CPT/HCPCS: C9803; Q3014-GT; U0003; U0005 ==

== ENCOUNTER 2022-05-15 04:08 | Day surgery (SDC) | payer OTHER ==
[2022-05-13 12:59] VITALS: BMI 37.6
[2022-05-15] MEDS ORDERED: methylPREDNISolone ACET (DEPO) 80 MG/1 ML VIAL ONE (07:20)
[2022-05-15] MEDS ORDERED: LIDOCAINE HCL/PF 1% SDV 5ML VIAL ONE (07:20)
[2022-05-15] MEDS ORDERED: BUPIVACAINE HCL/PF 0.25% (2.5MG/ML) 10 ML VIAL ONE (07:20)
[2022-05-15] MEDS ORDERED: SUCCINYLCHOLINE CHLORIDE 200 MG/10 ML SYRINGE ONE (07:42)
[2022-05-15] MEDS ORDERED: PROPOFOL 20 ML ONE ×4 (07:42)
[2022-05-15] MEDS ORDERED: methylPREDNISolone ACET (DEPO) 80 MG/1 ML VIAL IM ONE (07:52)
[2022-05-15] MEDS ORDERED: BUPIVACAINE HCL/PF 0.25% (2.5MG/ML) 10 ML VIAL IJ ONE (07:55)
[2022-05-15 09:35] VITALS: BP 130/79; PULSE 70; TEMP 97
== END 2022-05-15 09:36 | disposition home or self-care (01) ==
LOC: JASU-SURG 04:08
PROVIDERS: ATTEND Neurological Surgery
PROC: 3E0R33Z Introduction of Anti-inflammatory into Spinal Canal, Percutaneous Approach (ICD-10-PCS; 2022-05-15)
PROC: B01BZZZ Fluoroscopy of Spinal Cord (ICD-10-PCS; 2022-05-15)
PROC: 3E0R3BZ Introduction of Anesthetic Agent into Spinal Canal, Percutaneous Approach (ICD-10-PCS; principal; 2022-05-15 07:30)
DX: M51.26 Other intervertebral disc displacement, lumbar region (principal); M54.10 Radiculopathy, site unspecified; M54.9 Dorsalgia, unspecified
CPT/HCPCS: 76000-TC-FY

== ENCOUNTER 2022-10-29 08:36 | Emergency (ER) | payer OTHER ==
[2022-10-29 08:51] VITALS: BP 135/83; PULSE 85; RESP 18; TEMP 97.8; BMI 38.0
[2022-10-29] MEDS ORDERED: KETOROLAC TROMETHAMINE 30 MG/1 ML VIAL IM ONE (08:51)
[2022-10-29] MEDS ORDERED: KETOROLAC TROMETHAMINE 30 MG/1 ML VIAL ONE (09:00)
== END 2022-10-29 10:03 | disposition home or self-care (01) ==
LOC: JERFT 08:36 → JER 08:36 → JERFT 10:03
PROC: 3E0233Z Introduction of Anti-inflammatory into Muscle, Percutaneous Approach (ICD-10-PCS; principal; 2022-10-29)
DX: S80.02XA Contusion of left knee, initial encounter (principal); W22.8XXA Striking against or struck by other objects, initial encounter
CPT/HCPCS: 73562-TC-LT-FY; 99284-25

== ENCOUNTER 2022-11-07 10:00 | Emergency (ER) | payer OTHER ==
[2022-11-07 10:03] VITALS: BP 138/87; PULSE 94; RESP 18; TEMP 98.2; BMI 37.9
== END 2022-11-07 13:32 | disposition home or self-care (01) ==
LOC: JER 10:00
DX: M25.562 Pain in left knee (principal)
CPT/HCPCS: 73564-TC-LT-FY; 93971-TC; 99284-25

== ENCOUNTER 2023-11-25 13:51 | Observation (INO) | payer OTHER, BC ==
[2023-11-25 14:02] VITALS: BMI 36.9
[2023-11-25] MEDS ORDERED: ASPIRIN 325 MG TABLET PO ONE (14:21)
[2023-11-25] MEDS ORDERED: ASPIRIN 325 MG TABLET ONE (14:38)
[2023-11-25 14:50] LABS: BASO % 1.2 % (0-2.0); EOS % 3.4 % (0-4.5); HEMATOCRIT 40.1 % (35.4-49); HEMOGLOBIN 13.1 GM/dL (11.7-16.9); LYMPH % 27.7 % (8-40); MCHC 32.7 g/dl (32.0-35.9); MEAN CELL VOLUME 79.3 fl (80-96); MEAN PLT VOLUME 7.2 fl (7.5-11.1); MONO % 10.6 % (3.8-10.2); NEUT % 57.1 % (42.8-82.8); PLATELET COUNT 259 10^3/uL (134-434); RBC 5.05 M/mm3 (4.00-5.60); WHITE BLOOD COUNT 6.8 K/mm3 (4.0-10.0)
[2023-11-25 14:53] LABS: INR 1.06 (0.83-1.09); PROTHROMBIN TIME (PATIENT) 12.3 SEC (9.7-13.0)
[2023-11-25 15:09] LABS: POTASSIUM 4.4 mmol/L (3.5-5.1)
[2023-11-25 15:11] LABS: MAGNESIUM 2.2 mg/dL (1.8-2.4)
[2023-11-25 15:11] LABS: ALBUMIN 3.4 g/dl (3.4-5.0); BLOOD UREA NITROGEN 17.7 mg/dL (7-18); CALCIUM 8.5 mg/dL (8.5-10.1)
[2023-11-25 15:16] LABS: BILIRUBIN,TOTAL 0.6 mg/dL (0.2-1); TOT PROT 6.6 g/dl (6.4-8.2)
[2023-11-25] MEDS ORDERED: ACETAMINOPHEN 325 MG TABLET (FP) PO PRN (16:45)
[2023-11-25] MEDS: ATORVASTATIN CA 40 MG TABLET (FP) PO SCH (21:07)
[2023-11-26] MEDS: LEVOTHYROXINE NA 100 MCG TABLET (FP) PO SCH (06:21)
[2023-11-26] MEDS ORDERED: LEVOTHYROXINE NA 75 MCG TABLET (FP) PO SCH (07:00)
[2023-11-26 09:53] LABS: BASO % 0.9 % (0-2.0); EOS % 4.4 % (0-4.5); HEMATOCRIT 39.9 % (35.4-49); HEMOGLOBIN 13.5 GM/dL (11.7-16.9); LYMPH % 29.7 % (8-40); MCH 26.3 pg (25.7-33.7); MCHC 33.8 g/dl (32.0-35.9); MEAN CELL VOLUME 77.9 fl (80-96); MEAN PLT VOLUME 7.3 fl (7.5-11.1); MONO % 9.3 % (3.8-10.2); NEUT % 55.7 % (42.8-82.8); PLATELET COUNT 261 10^3/uL (134-434); RBC 5.12 M/mm3 (4.00-5.60); RDW 14.2 % (11.9-15.9)
[2023-11-26 09:56] LABS: POTASSIUM 4.2 mmol/L (3.5-5.1)
[2023-11-26 10:09] LABS: CALCIUM 8.8 mg/dL (8.5-10.1)
[2023-11-26 10:13] LABS: PHOSPHOROUS 2.7 mg/dL (2.5-4.9)
[2023-11-26 10:17] LABS: MAGNESIUM 1.9 mg/dL (1.8-2.4)
[2023-11-26] MEDS ORDERED: REGADENOSON 0.4 MG/5 ML PRE-FILLED SYRINGE IVPUSH ONE ×2 (10:45→11:39)
[2023-11-26] MEDS: ASPIRIN COATED 81 MG TABLET.EC PO SCH (13:44)
[2023-11-26 14:05] LABS: CHOLESTEROL 207 mg/dL (50-200)
[2023-11-26 14:06] LABS: LDL CHOLESTEROL (ONLY SJRH) 139 mg/dL (5-100)
[2023-11-26 14:08] LABS: HDL CHOLESTEROL 49 mg/dL (40-60)
[2023-11-26] MEDS: ATORVASTATIN CA 40 MG TABLET (FP) PO SCH (21:15)
[2023-11-26] MEDS: SACUBITRIL/VALSARTAN 24 MG-26 MG TABLET PO SCH (21:15)
[2023-11-26] MEDS: CARVEDILOL 3.125 MG TABLET (FP) PO SCH (21:16)
[2023-11-27] MEDS: LEVOTHYROXINE NA 100 MCG TABLET (FP) PO SCH (06:32)
[2023-11-27] MEDS ORDERED: SPIRONOLACTONE 25 MG TABLET PO SCH (10:00)
[2023-11-27] MEDS: SACUBITRIL/VALSARTAN 24 MG-26 MG TABLET PO SCH (10:03)
[2023-11-27] MEDS: ASPIRIN COATED 81 MG TABLET.EC PO SCH (10:03)
[2023-11-27] MEDS: CARVEDILOL 3.125 MG TABLET (FP) PO SCH (10:04)
[2023-11-27 11:29] VITALS: BP 134/85; PULSE 80; RESP 16; TEMP 97.6
== END 2023-11-27 12:20 | disposition short-term general hospital (02) ==
LOC: JER 13:51 → JERBED 15:53 → J4S 17:12
PROVIDERS: ADMIT Family Medicine; ATTEND Family Medicine
PROC: 3E033GC Introduction of Other Therapeutic Substance into Peripheral Vein, Percutaneous Approach (ICD-10-PCS; principal; 2023-11-25)
DX: R07.2 Precordial pain (principal); J36 Peritonsillar abscess; E78.5 Hyperlipidemia, unspecified; G47.30 Sleep apnea, unspecified; E03.9 Hypothyroidism, unspecified; F17.210 Nicotine dependence, cigarettes, uncomplicated; J35.1 Hypertrophy of tonsils
CPT/HCPCS: 0241U-QW; 36415; 71045-TC-FY; 78452-TC; 80048; 80053; 80061; 83036; 83735; 84100; 84443; 84484; 85025; 85610; 85730; 87070; 87651; 93005; 93010; 93017; 93306-TC; 94660; 96374; 99285-25; A9502; G0378; J2785

== ENCOUNTER 2024-02-11 15:05 | Emergency (ER) | payer OTHER, BC ==
[2024-02-11 15:09] VITALS: TEMP 97.6; BMI 38.2
[2024-02-11 15:46] LABS: EOS % 2.3 % (0-4.5); HEMATOCRIT 41.3 % (35.4-49); HEMOGLOBIN 13.4 GM/dL (11.7-16.9); LYMPH % 27.3 % (8-40); MCH 25.3 pg (25.7-33.7); MCHC 32.4 g/dl (32.0-35.9); MEAN CELL VOLUME 78.2 fl (80-96); MEAN PLT VOLUME 7.2 fl (7.5-11.1); MONO % 10.1 % (3.8-10.2); NEUT % 59.3 % (42.8-82.8); PLATELET COUNT 272 10^3/uL (134-434); RBC 5.28 M/mm3 (4.00-5.60); RDW 13.8 % (11.9-15.9); WHITE BLOOD COUNT 7.9 K/mm3 (4.0-10.0)
[2024-02-11 15:55] LABS: INR 1.1 (0.83-1.09); PROTHROMBIN TIME (PATIENT) 12.7 SEC (9.7-13.0)
[2024-02-11 15:58] LABS: ACTIVATED PTT 32.6 SECONDS (25.2-36.5)
[2024-02-11 17:16] LABS: POTASSIUM 4.4 mmol/L (3.5-5.1)
[2024-02-11 17:19] LABS: ALBUMIN 3.6 g/dl (3.4-5.0); BLOOD UREA NITROGEN 17.6 mg/dL (7-18)
[2024-02-11 17:24] LABS: BILIRUBIN,TOTAL 0.4 mg/dL (0.2-1); TOT PROT 6.8 g/dl (6.4-8.2)
[2024-02-11 17:27] VITALS: BP 108/76; PULSE 82; RESP 16
== END 2024-02-11 17:49 | disposition home or self-care (01) ==
LOC: JER 15:05
DX: M54.50 Low back pain, unspecified (principal); G89.29 Other chronic pain; R07.9 Chest pain, unspecified
CPT/HCPCS: 36415; 71045-TC-FY; 80053; 84484; 85025; 85610; 85730; 93005; 93010; 99285-25

== ENCOUNTER 2025-05-24 16:23 | Emergency (ER) | payer BC ==
[2025-05-24 16:30] VITALS: BP 95/63; PULSE 59; RESP 20; TEMP 97.5; BMI 36.1
[2025-05-24 16:52] LABS: URINE APPEARANCE CLEAR; URINE BILIRUBIN NEGATIVE (NEGATIVE); URINE COLOR YELLOW; URINE GLUCOSE (UA) 3+ (NEGATIVE); URINE KETONE NEGATIVE (NEGATIVE); URINE LEUK ESTERASE NEGATIVE (NEGATIVE); URINE NITRITE NEGATIVE (NEGATIVE); URINE PROTEIN NEGATIVE (NEGATIVE); URINE UROBILINOGEN 0.2 mg/dL (0.2-1.0)
[2025-05-24] MEDS ORDERED: METHOCARBAMOL 500 MG TABLET ONE (17:09)
[2025-05-24] MEDS: METHOCARBAMOL 500 MG TABLET PO ONE (17:13)
== END 2025-05-24 17:58 | disposition home or self-care (01) ==
LOC: JER 16:23
DX: M62.830 Muscle spasm of back (principal); M54.50 Low back pain, unspecified
CPT/HCPCS: 81003; 99283-25

== ENCOUNTER 2025-07-01 09:04 | Emergency (ER) | payer BC ==
[2025-07-01 09:17] VITALS: BP 95/57; PULSE 72; RESP 17; TEMP 98.1; BMI 34.4
[2025-07-01 10:06] LABS: ABSOLUTE IMMATURE GRANULOCYTES 0.02 x10^3/uL (0.0-0.031); BASOPHILS # 0.07 x10^3/uL (0.01-0.08); EOSINOPHIL % 4.0 % (0.8-7.0); EOSINOPHILS # 0.26 x10^3/uL (0.04-0.54); MCHC 30.8 g/dl (32.3-36.5); MEAN CELL VOLUME 82.3 fl (79.0-92.2); MEAN PLT VOLUME 9.2 fl (9.4-12.4); MONOCYTE # 0.79 x10^3/uL (0.30-0.82); MONOCYTE % 12.3 % (5.3-12.2); RDW 13.5 % (12.2-16.1)
[2025-07-01 10:25] LABS: GLUCOSE,RANDOM 121.0 mg/dL (74-106)
[2025-07-01 10:26] LABS: TOT PROT 6.8 g/dl (6.4-8.2); URINE APPEARANCE CLEAR; URINE BILIRUBIN NEGATIVE (NEGATIVE); URINE COLOR YELLOW; URINE GLUCOSE (UA) 3+ (NEGATIVE); URINE KETONE TRACE (NEGATIVE); URINE LEUK ESTERASE NEGATIVE (NEGATIVE); URINE NITRITE NEGATIVE (NEGATIVE); URINE PROTEIN NEGATIVE (NEGATIVE); URINE UROBILINOGEN 0.2 mg/dL (0.2-1.0)
[2025-07-01 10:27] LABS: CO2 19.0 mmol/L (21-32)
[2025-07-01 10:28] LABS: ALK PHOS 50.0 U/L (40-150)
[2025-07-01 10:31] LABS: CREATININE 0.99 mg/dL (0.55-1.3); SGOT/AST 20.0 U/L (5-34); SGPT/ALT 13.0 U/L (0-55)
[2025-07-01 10:55] LABS: HIV INTERPRETATION NEGATIVE (NEGATIVE)
[2025-07-01 10:56] LABS: HCV DIAGNOSTIC IN-HOUSE W/RFLX NON-REACTIVE (NONREACTIVE)
== END 2025-07-01 11:06 | disposition home or self-care (01) ==
LOC: JER 09:04
DX: N39.9 Disorder of urinary system, unspecified (principal); R33.9 Retention of urine, unspecified; R30.0 Dysuria
CPT/HCPCS: 36415; 76857; 80053; 81003; 85025; 86803; 87086; 87389; 99284-25